=== PATIENT | female | born 1975 | race Caucasian/White ===

== ENCOUNTER → 2016-12-09 | Outpatient (CLI) | payer OTHER ==
[~2016-12-09] MED LIST: ASPIR-LOW81 MG PO; BRILINTA90 MG PO; IMDUR ER TAB 6060 MG PO; LIPITOR TAB 1010 MG PO; METOPROLOL SUCC50 MG PO; NEURONTIN 300300 MG PO; NITROSTAT0.4 MG SL; SYNTHROID200 MCG PO; ZESTRIL20 MG PO
== END ==
LOC: SLEEP 21:30
DX: G47.30 Sleep apnea, unspecified (principal)
CPT/HCPCS: 95811

== ENCOUNTER 2020-10-02 07:08 | Emergency (ER) | payer OTHER ==
[~2020-10-02 07:08] MED LIST changes: +ASPIRIN CHEWABL81 MG PO; +SYNTHROID175 MCG PO; -SYNTHROID200 MCG PO
[2020-10-02 07:55] LABS: HEMOGLOBIN 16.6 gm/dl (12.3-15.3); RED BLOOD COUNT 4.96 M/UL (4.00-5.10); WHITE BLOOD COUNT 15.4 K/UL (4.5-11.0)
[2020-10-02 08:44] LABS: BUN/CREATININE RATIO 21 (0-10)
[2020-10-02] MEDS ORDERED: IBUPROFEN600 MG PO (10:38)
[2020-10-02] MEDS ORDERED: ZOFRAN4 MG PO (10:38)
== END 2020-10-02 10:40 | disposition home or self-care (01) ==
LOC: ER1 07:08
PROVIDERS: Internal Medicine
DX: R07.9 Chest pain, unspecified (principal); R10.13 Epigastric pain; E11.9 Type 2 diabetes mellitus without complications; I10 Essential (primary) hypertension; Z90.710 Acquired absence of both cervix and uterus; F17.210 Nicotine dependence, cigarettes, uncomplicated
CPT/HCPCS: 36415; 71046; 80053; 82550; 82553; 83690; 84484; 84703; 85025; 93005; 96374; 96375; 99285; J2270; J2405; Q9967

== ENCOUNTER 2020-10-08 08:39 | Emergency (ER) | payer OTHER ==
[~2020-10-08 08:39] MED LIST changes: +IBUPROFEN600 MG PO; +ZOFRAN4 MG PO
[2020-10-08 09:34] LABS: HEMOGLOBIN 16.6 gm/dl (12.3-15.3); RED BLOOD COUNT 5.06 M/UL (4.00-5.10)
[2020-10-08 09:55] LABS: BUN/CREATININE RATIO 13 (0-10)
== END 2020-10-08 11:48 | disposition left against medical advice (07) ==
LOC: ER1 08:39
PROVIDERS: Physician Assistant
DX: R10.13 Epigastric pain (principal); D72.829 Elevated white blood cell count, unspecified; R07.9 Chest pain, unspecified; E87.6 Hypokalemia; E11.9 Type 2 diabetes mellitus without complications; I10 Essential (primary) hypertension; E78.5 Hyperlipidemia, unspecified; I25.2 Old myocardial infarction; F17.210 Nicotine dependence, cigarettes, uncomplicated; Z88.1 Allergy status to other antibiotic agents; Z90.710 Acquired absence of both cervix and uterus
CPT/HCPCS: 36415; 71045; 80053; 82550; 82553; 83690; 83874; 84484; 85025; 93005; 96374; 96375; 99284; C9113; J2405; J7030

== ENCOUNTER 2021-07-27 19:37 | Emergency (ER) | payer OTHER ==
[2021-07-27 20:23] LABS: HEMOGLOBIN 15.4 gm/dl (12.3-15.3); RED BLOOD COUNT 4.5 M/UL (4.00-5.10); WHITE BLOOD COUNT 11.9 K/UL (4.5-11.0)
[2021-07-27 20:47] LABS: BUN/CREATININE RATIO 29 (0-10)
== END 2021-07-27 23:08 | disposition home or self-care (01) ==
LOC: ER1 19:37
PROVIDERS: Physician Assistant
DX: R07.9 Chest pain, unspecified (principal); Z90.710 Acquired absence of both cervix and uterus; F17.210 Nicotine dependence, cigarettes, uncomplicated; Z86.16 Personal history of COVID-19; I25.2 Old myocardial infarction
CPT/HCPCS: 71045; 80048; 82550; 82553; 83874; 84484; 85025; 99285; J1885; J2405

== ENCOUNTER 2022-02-02 05:21 | Emergency (ER) | payer OTHER ==
[2022-02-02 08:48] LABS: HEMOGLOBIN 16.9 gm/dl (12.3-15.3); RED BLOOD COUNT 5.14 M/UL (4.00-5.10); WHITE BLOOD COUNT 14.8 K/UL (4.5-11.0)
[2022-02-02 12:55] LABS: BUN/CREATININE RATIO 16 (0-10)
== END 2022-02-02 10:05 | disposition left against medical advice (07) ==
LOC: ER1 05:21
PROVIDERS: Emergency Medicine
DX: R51.9 Headache, unspecified (principal); R11.2 Nausea with vomiting, unspecified; Z90.49 Acquired absence of other specified parts of digestive tract; Z88.1 Allergy status to other antibiotic agents
CPT/HCPCS: 70450; 80053; 85025; 85652; 93005; 96361; 96374; 96375; 99283; J2270; J2765